=== PATIENT | male | born 1995 | race Caucasian/White ===

== ENCOUNTER 2019-12-06 19:18 | Emergency (ER) | payer BC ==
[2019-12-06] MEDS ORDERED: ACETAMINOPHEN 500 MG TABLET (FP) PO ONE (19:41)
[2019-12-06] MEDS ORDERED: DEXAMETHASONE LIQUID 0.5 MG/5 ML PO ONE (19:41)
--- NOTE | 2019-12-06 19:41 | PDOC ---
Rapid Medical Evaluation Time Seen by Provider: 12/06/19 19:39 Medical Evaluation: Allergies Allergy/AdvReac Type Severity Reaction Status Date / Time No Known Allergies Allergy Verified 10/08/13 01:44 12/06/19 19:39 HPI: Fever and sore throat x 3 days PE: OP with erythema and exudate ORDERS: Tylenol, Decadron, and rapid strep Discharge Disposition - Diagnosis Acute bacterial pharyngitis - Referrals - Patient Instructions - Post Discharge Activity
[2019-12-06] MEDS ORDERED: ACETAMINOPHEN 325 MG TABLET (FP) ONE (19:44)
[2019-12-06 19:51] VITALS: BP 101/50; BMI 24.3
[2019-12-06] MEDS ORDERED: DEXAMETHASONE SOD PHOSPHATE 10 MG/1 ML VIAL ONE (20:09)
[2019-12-06] MEDS ORDERED: ACETAMINOPHEN 500 MG TABLET (FP) ONE (20:10)
--- NOTE | 2019-12-06 20:20 | PDOC ---
History of Present Illness - General Chief Complaint: Cold Symptoms Stated Complaint: FEVER Time Seen by Provider: 12/06/19 19:39 History Source: Patient - History of Present Illness Initial Comments: 12/06/19 20:23 Chief complaint: Sore throat and fever Patient is a healthy 24-year-old male with 2 days of fever and sore throat. No cough. Patient is drinking fluids but having difficulty eating regular food. Patient's voice is normal. GENERAL/CONSTITUTIONAL: +fever, no: Weakness. dizziness HEAD, EYES, EARS, NOSE AND THROAT: No change in vision. No ear pain or discharge. + sore throat. CARDIOVASCULAR: No chest pain RESPIRATORY: No shortness of breath or cough GASTROINTESTINAL: No pain, nausea, vomiting, diarrhea or constipation GENITOURINARY: No dysuria MUSCULOSKELETAL: No neck or back pain SKIN: No rash NEUROLOGIC: No headache, vertigo, loss of consciousness, or loss of sensation. GENERAL: The patient is awake, alert, and fully oriented, in no acute distress. HEAD: Normal with no signs of trauma. EYES: Pupils equal, round and reactive to light, sclera anicteric, conjunctiva clear. ENT: Ears clear, TMs normal pharynx: + erythema, no exudate, uvula midline, no signs of abscess NECK: supple CHEST: clear, nontender, rr ABD: soft, nontender BACK: no tenderness or signs of injury EXTREMITIES: Normal range of motion, no edema. NEUROLOGICAL: Normal speech, normal gait. SKIN: Warm, Dry Past History - Past Medical History Allergies/Adverse Reactions: Allergies Allergy/AdvReac Type Severity Reaction Status Date / Time No Known Allergies Allergy Verified 12/06/19 19:47 Home Medications: Ambulatory Orders Clindamycin [Cleocin -] 300 mg PO QID #40 capsule 12/06/19 COPD: No - Immunization History Immunization Up to Date: Yes - Psycho Social/Smoking Cessation Hx Smoking History: Never smoked Have you smoked in the past 12 months: No Information on smoking cessation initiated: No Hx Alcohol Use: No Drug/Substance Use Hx: No *Physical Exam - Vital Signs Last Vital Signs Temp Pulse Resp BP Pulse Ox 103.0 F H 122 H 18 101/50 L 100 12/06/19 19:40 12/06/19 19:40 12/06/19 19:40 12/06/19 19:40 12/06/19 19:40 ED Treatment Course - Medications Given in the ED: ED Medications Discontinued Medications Generic Name Dose Route Start Last Admin Trade Name Cyndy PRN Reason Stop Dose Admin Acetaminophen 1,000 mg 12/06/19 19:41 12/06/19 20:12 Tylenol - PO 12/06/19 19:42 1,000 mg ONCE ONE Administration Dexamethasone 10 mg 12/06/19 19:41 12/06/19 20:12 Decadron Liquid - PO 12/06/19 19:42 10 mg ONCE ONE Administration Medical Decision Making - Medical Decision Making 12/06/19 20:25 Healthy 24-year-old male with 2 days of fever and sore throat. Has erythema, no exudate, no signs of abscess. Patient has normal voice. Patient denies any oral sex. Patient was given Decadron and Tylenol. Will treat for strep. 12/06/19 20:46 Strep test is negative, given the fact that unable to get mono result in the ER. Will treat with clindamycin and have patient follow-up and if not getting better get mono test. Discussed issues, findings, results, applicable medications and treatments and follow-up. All these were understood and all questions were answered Discharge - Discharge Information Problems reviewed: Yes Clinical Impression/Diagnosis: Pharyngitis Qualifiers: Pharyngitis/tonsillitis etiology: unspecified etiology Qualified Code(s): J02.9 - Acute pharyngitis, unspecified Condition: Stable Disposition: HOME - Admission No - Additional Discharge Information Prescriptions: Clindamycin [Cleocin -] 300 mg PO QID #40 capsule - Follow up/Referral - Patient Discharge Instructions Patient Printed Discharge Instructions: DI for Pharyngitis/Tonsillopharyngitis -- Adult Additional Instructions: Drink 2-3 L of water daily Take clindamycin 300 mg every 6 hours for 10 days. Do not stop it early even if you feel better Make sure you get a probiotic, you can ask the pharmacist to point one out for you. This will protect your stomach, help prevent diarrhea Take Tylenol 650 mg every 4 hours or Motrin 600 mg every 6 hours for fever and pain Return to the nearest ER if short of breath, unable to swallow or feeling sicker Followup with your doctor in one to 2 days You can opt to follow-up with an ENT doctor. Go onto [facility] website, put your information and, pick an office, pick a complaint which in your case would be throat. Follow the instructions and make a follow-up appointment - Post Discharge Activity Work/Back to School Note: Back to Work
[2019-12-06 21:07] VITALS: PULSE 88; TEMP 99.7
== END 2019-12-06 21:07 | disposition home or self-care (01) ==
LOC: JERFT 19:18
DX: J02.9 Acute pharyngitis, unspecified (principal)
CPT/HCPCS: 87070; 87880; 99284-25

== ENCOUNTER 2021-11-02 05:04 | Emergency (ER) | payer BC ==
[2021-11-02 05:16] VITALS: BP 118/55; PULSE 74; TEMP 98; BMI 24.3
[2021-11-02] MEDS ORDERED: DIPHTH,PERTUSS(ACELL),TET 0.5 ML DISP.SYRIN IM ONE ×3 (05:27→05:45)
[2021-11-02] MEDS ORDERED: LIDOCAINE HCL 2% (50ML VIAL) INF ONE (05:44)
[2021-11-02] MEDS ORDERED: LIDOCAINE HCL 2% (20ML MULTI-DOSE VIAL) ONE (05:45)
[2021-11-02 06:33] LABS: BASO % 0.4 % (0-2.0); EOS % 0.1 % (0-4.5); HEMATOCRIT 43.6 % (35.4-49); HEMOGLOBIN 14.9 GM/dL (11.7-16.9); LYMPH % 19.7 % (8-40); MCH 31.3 pg (25.7-33.7); MCHC 34.1 g/dl (32.0-35.9); MEAN CELL VOLUME 91.8 fl (80-96); MEAN PLT VOLUME 8.2 fl (7.5-11.1); MONO % 5.3 % (3.8-10.2); NEUT % 74.5 % (42.8-82.8); PLATELET COUNT 227 10^3/uL (134-434); RBC 4.75 M/mm3 (4.00-5.60); RDW 12.4 % (11.9-15.9); WHITE BLOOD COUNT 6.8 K/mm3 (4.0-10.0)
[2021-11-02 06:46] LABS: INR 1.04 (0.83-1.09)
[2021-11-02 06:55] LABS: CALCIUM 8.3 mg/dL (8.5-10.1)
[2021-11-02 06:56] LABS: ALBUMIN 4.5 g/dl (3.4-5.0); BLOOD UREA NITROGEN 8.8 mg/dL (7-18)
[2021-11-02 06:59] LABS: BILIRUBIN,TOTAL 0.5 mg/dL (0.2-1); TOT PROT 7.7 g/dl (6.4-8.2)
== END 2021-11-02 07:00 | disposition home or self-care (01) ==
LOC: JER 05:04
PROC: 3E0234Z Introduction of Serum, Toxoid and Vaccine into Muscle, Percutaneous Approach (ICD-10-PCS; principal; 2021-11-02)
DX: S62.314A Displaced fracture of base of fourth metacarpal bone, right hand, initial encounter for closed fracture (principal); W22.8XXA Striking against or struck by other objects, initial encounter
CPT/HCPCS: 36415; 73110-TC-RT-FY; 73130-TC-RT-FY; 80053; 85025; 85610; 85730; 86850; 86900; 86901; 90715; 99284-25

== ENCOUNTER 2021-11-06 10:17 | Day surgery (SDC) | payer BC ==
[2021-11-05 11:54] VITALS: BMI 22.8
[2021-11-06] MEDS ORDERED: LIDOCAINE HCL 2% (20ML MULTI-DOSE VIAL) ONE (11:53)
[2021-11-06] MEDS ORDERED: BUPIVACAINE HCL/PF 0.25% (2.5MG/ML) 10 ML VIAL ONE (11:54)
[2021-11-06] MEDS ORDERED: PROPOFOL 20 ML ONE (12:23)
[2021-11-06] MEDS ORDERED: fentaNYL CITRATE 250 MCG/5 ML VIAL ONE (12:24)
[2021-11-06] MEDS ORDERED: MIDAZOLAM HCL 2 MG/2 ML SINGLE DOSE VIAL ONE ×2 (12:24)
[2021-11-06] MEDS ORDERED: ACETAMINOPHEN INJECTION 100 ML IVPB ONE (13:21)
[2021-11-06] MEDS ORDERED: ACETAMINOPHEN 1000 MG/100 ML BAG IVPB ONE (13:23)
[2021-11-06] MEDS ORDERED: oxyCODONE HCL 5 MG TABLET PO PRN (13:23)
[2021-11-06] MEDS ORDERED: ONDANSETRON 4 MG/2 ML VIAL IVPUSH PRN (13:23)
[2021-11-06] MEDS ORDERED: LACTATED RINGERS SOLUTION 1,000 ML IV SCH (13:30)
[2021-11-06 14:14] VITALS: TEMP 97.7
[2021-11-06 14:25] VITALS: BP 105/65; PULSE 67
== END 2021-11-06 14:40 | disposition home or self-care (01) ==
LOC: FASU 10:17
PROVIDERS: ATTEND Orthopaedic Surgery
PROC: 0PSP34Z Reposition Right Metacarpal with Internal Fixation Device, Percutaneous Approach (ICD-10-PCS; 2021-11-06)
PROC: 0RSSXZZ Reposition Right Carpometacarpal Joint, External Approach (ICD-10-PCS; 2021-11-06)
PROC: 0RSSXZZ Reposition Right Carpometacarpal Joint, External Approach (ICD-10-PCS; 2021-11-06)
PROC: 0RSSXZZ Reposition Right Carpometacarpal Joint, External Approach (ICD-10-PCS; 2021-11-06)
PROC: 0PSP34Z Reposition Right Metacarpal with Internal Fixation Device, Percutaneous Approach (ICD-10-PCS; principal; 2021-11-06 12:50)
PROC: 0PSP34Z Reposition Right Metacarpal with Internal Fixation Device, Percutaneous Approach (ICD-10-PCS; 2021-11-06 12:50)
DX: S62.312A Displaced fracture of base of third metacarpal bone, right hand, initial encounter for closed fracture (principal); S62.314A Displaced fracture of base of fourth metacarpal bone, right hand, initial encounter for closed fracture; S62.316A Displaced fracture of base of fifth metacarpal bone, right hand, initial encounter for closed fracture; S63.054A Dislocation of other carpometacarpal joint of right hand, initial encounter; X58.XXXA Exposure to other specified factors, initial encounter; Y93.9 Activity, unspecified; Y92.9 Unspecified place or not applicable
CPT/HCPCS: 73110-TC-RT-FY; 73130-TC-RT-FY; 94760